=== PATIENT | female | born 1955 | race Hispanic/Latino ===

== ENCOUNTER 2021-05-21 06:58 | Emergency (ER) | payer OTHER, MEDICARE, MEDICAID ==
[2021-05-21] MEDS ORDERED: Calcium Chloride 1 GM/10 ML Abboject SYRINGE ONE (07:01)
[2021-05-21] MEDS ORDERED: EPINEPHrine 1 MG/10 ML Abboject SYRINGE ONE (07:01)
[2021-05-21] MEDS ORDERED: Sodium Bicarb 50 MEQ/50 ML Abboject 8.4% SYRINGE ONE (07:01)
== END 2021-05-21 07:06 | disposition expired ==
LOC: EDBD 06:58 → ERS 06:58
DX: I46.9 Cardiac arrest, cause unspecified (principal); S00.03XA Contusion of scalp, initial encounter; S60.512A Abrasion of left hand, initial encounter; S60.511A Abrasion of right hand, initial encounter; X58.XXXA Exposure to other specified factors, initial encounter
CPT/HCPCS: 31500; 92950; 96374; 96375; G0390; J0171